=== PATIENT | female | born 1940 | race Caucasian/White ===

== ENCOUNTER 2021-08-27 11:50 | Inpatient (IN) | payer MEDICARE, OTHER ==
[~2021-08-27] VITALS: Ht 175.3 cm; Wt 112.5 kg
[2021-08-27 13:19] LABS: Basophils # (auto) 0.1 10 ^3/uL (0-0.2); Basophils % (auto) 0.8 % (0.0-2.0); Eosinophils # (auto) 0.2 10 ^3/uL (0-0.8); Eosinophils % (auto) 2.5 % (0.0-7.0); Hematocrit 40.9 % (36.0-46.0); Hemoglobin 13.2 g/dL (12.2-16.2); Lymphocytes % (auto) 12.4 % (10.0-50.0); Mean Corpuscular Hemoglobin 28.5 pg (28.0-32.0); Mean Corpuscular Hgb Conc. 32.1 g/dL (32.0-36.0); Mean Corpuscular Volume 88.8 fL (80.0-100.0); Monocytes # (auto) 0.5 10 ^3/uL (0-1.3); Monocytes % (auto) 5.9 % (0.0-12.0); Neutrophils # (auto) 6.3 10 ^3/uL (1.6-8.6); Neutrophils % (auto) 78.4 % (37.0-80.0); Red Blood Cells 4.61 10^6/uL (4.0-5.20); Red Cell Distribution Width 14.2 % (11.8-14.3)
[2021-08-27 13:40] LABS: Albumin 3.6 g/dL (3.4-5.0); Calcium 9.3 mg/dL (8.5-10.1); Potassium 4.1 mmol/L (3.5-5.1)
[2021-08-27 13:43] LABS: BUN/Creatinine Ratio 23.4; Bilirubin, Total 0.4 mg/dL (0.2-1.0)
[2021-08-27 14:13] LABS: INR 1.09 (0.9-1.15); Partial Thromboplastin Time 25.9 sec (23.6-33.0)
[2021-08-27] MEDS ORDERED: MORPHINE SULFATE INJECTION 2 MG/ML SYRG IV PRN ×4 (14:45→18:45)
[2021-08-27] MEDS ORDERED: NITROGLYCERIN 0.4 MG SL TAB SL PRN ×2 (14:45→18:45)
[2021-08-27] MEDS ORDERED: POTA10TA32 PO (15:43)
[2021-08-27] MEDS ORDERED: DULO1CAP6 PO (15:43)
[2021-08-27] MEDS ORDERED: METO25TA93 PO (15:43)
[2021-08-27] MEDS ORDERED: PRAV20TA3 PO (15:43)
[2021-08-27] MEDS ORDERED: FENO145T27 PO (15:43)
[2021-08-27] MEDS ORDERED: RIVA10TA2 PO (15:43)
[2021-08-27] MEDS ORDERED: AMLO-489 PO (15:43)
[2021-08-27] MEDS ORDERED: FUR20T PO (15:43)
[2021-08-27] MEDS ORDERED: MULT-976 PO (15:47)
[2021-08-27] MEDS ORDERED: TETR0.0542 OP (15:47)
[2021-08-27] MEDS ORDERED: CYAN100T7 PO (15:47)
[2021-08-27] MEDS ORDERED: ZINC220C8 PO (15:47)
[2021-08-27] MEDS ORDERED: CARB6.5S44 OT (15:47)
[2021-08-27] MEDS ORDERED: DIPH1TAB30 PO (15:47)
[2021-08-27] MEDS ORDERED: VITA100T3 PO (15:47)
[2021-08-27] MEDS ORDERED: ASCO500C5 PO (15:47)
[2021-08-27] MEDS: ONDANSETRON HCL 4 MG/2 ML VIAL IV PRN (17:17)
[2021-08-27 18:02] VITALS: BP 161/76
[2021-08-27] MEDS ORDERED: NIFEdipine ER 30 MG TAB PO ONE (18:45)
[2021-08-27] MEDS ORDERED: AZITHROMYCIN 500MG/ 250ML 250 ML IV ONE (18:45)
[2021-08-27] MEDS ORDERED: METOCLOPRAMIDE HCL 5MG/ml INJ 2ml VIAL IV PRN (18:45)
[2021-08-27] MEDS ORDERED: ALBUTEROL SULF 2.5 MG/0.5ML(0.5%) NEB SOLN NEB PRN (18:45)
[2021-08-27] MEDS ORDERED: LORazepam 0.5 MG TAB PO PRN (18:45)
[2021-08-27] MEDS ORDERED: ALUM & MAG HYDROX-SIMETH LIQ(MAALOX) 30 ML PO PRN (18:45)
[2021-08-27] MEDS ORDERED: ACETAMINOPHEN 325 MG TAB PO PRN (18:45)
[2021-08-27] MEDS: SODIUM CHLORIDE 0.9% 1,000 ML IV SCH (19:52)
[2021-08-27 22:00] VITALS: BP 148/62
[2021-08-27] MEDS ORDERED: IPRATROPIUM BROM 0.5 MG/2.5ML INH SOL NEB SCH (22:00)
[2021-08-27] MEDS ORDERED: POTASSIUM CHL 20 Meq TABLET PO SCH (22:00)
[2021-08-27] MEDS ORDERED: IPRATROPIUM BROM 0.5 MG/2.5ML INH SOL NEB PRN (22:00)
[2021-08-27] MEDS ORDERED: BUDESONIDE (INHALATION) 0.5 MG/2 ML NEB NEB SCH (22:00)
[2021-08-27] MEDS: PRAVASTATIN SODIUM 20 MG TAB PO SCH (22:27)
[2021-08-27] MEDS: METOPROLOL TARTRATE 25 MG TAB PO SCH (22:31)
[2021-08-28 05:00] VITALS: BP 111/61
[2021-08-28 05:58] LABS: Basophils # (auto) 0.1 10 ^3/uL (0-0.2); Basophils % (auto) 1.2 % (0.0-2.0); Eosinophils # (auto) 0.1 10 ^3/uL (0-0.8); Eosinophils % (auto) 1.8 % (0.0-7.0); Hematocrit 34.5 % (36.0-46.0); Hemoglobin 11.6 g/dL (12.2-16.2); Lymphocytes # (auto) 1.4 10 ^3/uL (0.4-5.4); Lymphocytes % (auto) 25.4 % (10.0-50.0); Mean Corpuscular Hemoglobin 29.8 pg (28.0-32.0); Mean Corpuscular Hgb Conc. 33.8 g/dL (32.0-36.0); Mean Corpuscular Volume 88.3 fL (80.0-100.0); Monocytes # (auto) 0.5 10 ^3/uL (0-1.3); Monocytes % (auto) 9.5 % (0.0-12.0); Neutrophils # (auto) 3.5 10 ^3/uL (1.6-8.6); Neutrophils % (auto) 62.1 % (37.0-80.0); Nucleated Red Blood Cells % 0.1 %; Red Blood Cells 3.91 10^6/uL (4.0-5.20); Red Cell Distribution Width 14.4 % (11.8-14.3); White Blood Cell 5.6 10^3/uL (4.4-10.8)
[2021-08-28 06:13] LABS: INR 1.09 (0.9-1.15)
[2021-08-28 06:27] LABS: Potassium 3.9 mmol/L (3.5-5.1)
[2021-08-28 06:38] LABS: Albumin 2.9 g/dL (3.4-5.0); BUN/Creatinine Ratio 26.6; Bilirubin, Total 0.7 mg/dL (0.2-1.0); Calcium 8.5 mg/dL (8.5-10.1); Magnesium 2.4 mg/dL (1.6-2.6); Total Protein 6.1 g/dL (6.4-8.2); Uric Acid 6.3 mg/dL (2.6-6.0)
[2021-08-28 09:00] VITALS: BP 127/63
[2021-08-28] MEDS: AZITHROMYCIN 500MG/ 250ML 250 ML IV SCH (09:45)
[2021-08-28] MEDS: ENOXAPARIN SOD 120 MG/0.8 ML SYRINGE SC SCH ×2 (09:47→22:00)
[2021-08-28] MEDS: METOPROLOL TARTRATE 25 MG TAB PO SCH ×2 (09:47→22:05)
[2021-08-28] MEDS: MULTIPLE VITAMINS W/ MINERALS TAB PO SCH (09:47)
[2021-08-28] MEDS ORDERED: MULTIPLE VITAMINS W/ MINERALS TAB PO SCH (10:00)
[2021-08-28] MEDS ORDERED: NIFEdipine ER 30 MG TAB PO SCH (10:00)
[2021-08-28] MEDS: SODIUM CHLORIDE 0.9% 1,000 ML IV SCH ×2 (11:49→18:03)
[2021-08-28] MEDS ORDERED: IOHEXOL 350 MG/ML 100ML IJ ONE (12:14)
[2021-08-28 13:00] VITALS: BP 127/55
[2021-08-28] MEDS: ONDANSETRON HCL 4 MG/2 ML VIAL IV PRN (16:03)
[2021-08-28 17:00] VITALS: BP 131/60
[2021-08-28] MEDS ORDERED: RIVAROXABAN 10 MG TAB PO SCH (18:00)
[2021-08-28] MEDS: HYDROcodone-ACET 5/325MG TAB PO PRN (18:06)
[2021-08-28] MEDS ORDERED: FUROSEMIDE 40 MG/4 ML VIAL IV SCH (19:55)
[2021-08-28 21:57] VITALS: BP 111/52
[2021-08-28] MEDS: PRAVASTATIN SODIUM 20 MG TAB PO SCH (22:05)
[2021-08-29] MEDS: HYDROcodone-ACET 5/325MG TAB PO PRN ×2 (00:35→18:05)
[2021-08-29 05:00] VITALS: BP 128/57
[2021-08-29 05:54] LABS: Basophils # (auto) 0 10 ^3/uL (0-0.2); Basophils % (auto) 0.8 % (0.0-2.0); Eosinophils # (auto) 0.1 10 ^3/uL (0-0.8); Eosinophils % (auto) 1.2 % (0.0-7.0); Hematocrit 31.9 % (36.0-46.0); Hemoglobin 10.6 g/dL (12.2-16.2); Lymphocytes # (auto) 1.3 10 ^3/uL (0.4-5.4); Lymphocytes % (auto) 22.7 % (10.0-50.0); Mean Corpuscular Hemoglobin 29.6 pg (28.0-32.0); Mean Corpuscular Hgb Conc. 33.3 g/dL (32.0-36.0); Mean Corpuscular Volume 88.8 fL (80.0-100.0); Monocytes # (auto) 0.7 10 ^3/uL (0-1.3); Monocytes % (auto) 12.2 % (0.0-12.0); Neutrophils # (auto) 3.6 10 ^3/uL (1.6-8.6); Neutrophils % (auto) 63.1 % (37.0-80.0); Red Blood Cells 3.59 10^6/uL (4.0-5.20); Red Cell Distribution Width 14.2 % (11.8-14.3); White Blood Cell 5.6 10^3/uL (4.4-10.8)
[2021-08-29] MEDS: SODIUM CHLORIDE 0.9% 1,000 ML IV SCH (06:30)
[2021-08-29 06:39] LABS: Potassium 3.9 mmol/L (3.5-5.1)
[2021-08-29 06:47] LABS: Albumin 2.6 g/dL (3.4-5.0); BUN/Creatinine Ratio 31.4; Bilirubin, Total 0.6 mg/dL (0.2-1.0); Calcium 8.1 mg/dL (8.5-10.1); Total Protein 5.2 g/dL (6.4-8.2)
[2021-08-29 09:00] VITALS: BP 132/57
[2021-08-29] MEDS: ENOXAPARIN SOD 120 MG/0.8 ML SYRINGE SC SCH ×2 (09:42→21:25)
[2021-08-29] MEDS: AZITHROMYCIN 500MG/ 250ML 250 ML IV SCH (09:42)
[2021-08-29] MEDS: MULTIPLE VITAMINS W/ MINERALS TAB PO SCH (09:42)
[2021-08-29] MEDS: METOPROLOL TARTRATE 25 MG TAB PO SCH ×2 (09:44→21:24)
[2021-08-29 13:00] VITALS: BP 102/61
[2021-08-29 16:45] VITALS: BP 141/67
[2021-08-29] MEDS: RIVAROXABAN 20 MG TAB PO SCH (18:05)
[2021-08-29] MEDS: PRAVASTATIN SODIUM 20 MG TAB PO SCH (21:25)
[2021-08-29 22:00] VITALS: BP 120/57
[2021-08-30] MEDS: HYDROcodone-ACET 5/325MG TAB PO PRN ×4 (00:45→21:34)
[2021-08-30 05:00] VITALS: BP 133/68
[2021-08-30 06:01] LABS: Basophils # (auto) 0.1 10 ^3/uL (0-0.2); Basophils % (auto) 1.5 % (0.0-2.0); Eosinophils # (auto) 0.1 10 ^3/uL (0-0.8); Eosinophils % (auto) 1.9 % (0.0-7.0); Hematocrit 32.1 % (36.0-46.0); Hemoglobin 10.6 g/dL (12.2-16.2); Lymphocytes # (auto) 1.1 10 ^3/uL (0.4-5.4); Lymphocytes % (auto) 20.7 % (10.0-50.0); Mean Corpuscular Hgb Conc. 32.9 g/dL (32.0-36.0); Mean Corpuscular Volume 88.1 fL (80.0-100.0); Monocytes # (auto) 0.5 10 ^3/uL (0-1.3); Monocytes % (auto) 9.8 % (0.0-12.0); Neutrophils # (auto) 3.4 10 ^3/uL (1.6-8.6); Neutrophils % (auto) 66.1 % (37.0-80.0); Red Blood Cells 3.64 10^6/uL (4.0-5.20); Red Cell Distribution Width 14.1 % (11.8-14.3); White Blood Cell 5.1 10^3/uL (4.4-10.8)
[2021-08-30 06:24] LABS: Potassium 3.9 mmol/L (3.5-5.1)
[2021-08-30 06:32] LABS: Albumin 2.6 g/dL (3.4-5.0); BUN/Creatinine Ratio 27.9; Bilirubin, Total 0.6 mg/dL (0.2-1.0); Calcium 8.1 mg/dL (8.5-10.1); Total Protein 5.5 g/dL (6.4-8.2)
[2021-08-30 09:00] VITALS: BP 133/61
[2021-08-30] MEDS: AZITHROMYCIN 500MG/ 250ML 250 ML IV SCH (10:20)
[2021-08-30] MEDS: METOPROLOL TARTRATE 25 MG TAB PO SCH ×2 (10:21→21:14)
[2021-08-30] MEDS: MULTIPLE VITAMINS W/ MINERALS TAB PO SCH (10:22)
[2021-08-30] MEDS: ENOXAPARIN SOD 120 MG/0.8 ML SYRINGE SC SCH ×2 (10:22→21:20)
[2021-08-30 13:00] VITALS: BP 109/57
[2021-08-30 17:00] VITALS: BP 128/57
[2021-08-30] MEDS: RIVAROXABAN 20 MG TAB PO SCH (17:51)
[2021-08-30] MEDS: PRAVASTATIN SODIUM 20 MG TAB PO SCH (21:19)
[2021-08-30 22:00] VITALS: BP 99/86
[2021-08-31] MEDS: HYDROcodone-ACET 5/325MG TAB PO PRN ×2 (04:21→22:19)
[2021-08-31 05:25] VITALS: BP 161/78
[2021-08-31 07:28] LABS: Basophils # (auto) 0.1 10 ^3/uL (0-0.2); Basophils % (auto) 1.1 % (0.0-2.0); Eosinophils # (auto) 0.1 10 ^3/uL (0-0.8); Eosinophils % (auto) 2.8 % (0.0-7.0); Hemoglobin 10.8 g/dL (12.2-16.2); Lymphocytes # (auto) 0.9 10 ^3/uL (0.4-5.4); Mean Corpuscular Hemoglobin 28.8 pg (28.0-32.0); Mean Corpuscular Hgb Conc. 32.8 g/dL (32.0-36.0); Mean Corpuscular Volume 87.9 fL (80.0-100.0); Monocytes # (auto) 0.5 10 ^3/uL (0-1.3); Monocytes % (auto) 10.7 % (0.0-12.0); Neutrophils % (auto) 66.4 % (37.0-80.0); Nucleated Red Blood Cells % 0.1 %; Red Blood Cells 3.75 10^6/uL (4.0-5.20); White Blood Cell 4.5 10^3/uL (4.4-10.8)
[2021-08-31 07:45] LABS: Albumin 2.4 g/dL (3.4-5.0); Calcium 8.3 mg/dL (8.5-10.1)
[2021-08-31 07:49] LABS: BUN/Creatinine Ratio 31.1; Bilirubin, Total 0.6 mg/dL (0.2-1.0); Total Protein 5.5 g/dL (6.4-8.2)
[2021-08-31 09:00] VITALS: BP 136/68
[2021-08-31] MEDS: MULTIPLE VITAMINS W/ MINERALS TAB PO SCH (10:00)
[2021-08-31] MEDS: ENOXAPARIN SOD 120 MG/0.8 ML SYRINGE SC SCH ×2 (10:00→22:16)
[2021-08-31] MEDS: METOPROLOL TARTRATE 25 MG TAB PO SCH ×2 (10:03→22:16)
[2021-08-31] MEDS: DOCUSATE SOD 100 MG CAP PO PRN (11:12)
[2021-08-31 12:38] VITALS: BP 136/68
[2021-08-31 12:53] VITALS: BP 147/73
[2021-08-31 17:00] VITALS: BP 148/70
[2021-08-31] MEDS: RIVAROXABAN 20 MG TAB PO SCH (18:09)
[2021-08-31 22:00] VITALS: BP 129/53
[2021-08-31] MEDS: PRAVASTATIN SODIUM 20 MG TAB PO SCH (22:16)
[2021-09-01 05:00] VITALS: BP 146/61
[2021-09-01 05:42] LABS: Basophils # (auto) 0.1 10 ^3/uL (0-0.2); Basophils % (auto) 1.3 % (0.0-2.0); Eosinophils # (auto) 0.2 10 ^3/uL (0-0.8); Eosinophils % (auto) 3.9 % (0.0-7.0); Hematocrit 31.6 % (36.0-46.0); Hemoglobin 10.4 g/dL (12.2-16.2); Lymphocytes # (auto) 0.9 10 ^3/uL (0.4-5.4); Lymphocytes % (auto) 19.7 % (10.0-50.0); Mean Corpuscular Hemoglobin 28.7 pg (28.0-32.0); Mean Corpuscular Hgb Conc. 32.9 g/dL (32.0-36.0); Mean Corpuscular Volume 87.2 fL (80.0-100.0); Monocytes # (auto) 0.5 10 ^3/uL (0-1.3); Monocytes % (auto) 10.6 % (0.0-12.0); Neutrophils # (auto) 3.1 10 ^3/uL (1.6-8.6); Neutrophils % (auto) 64.5 % (37.0-80.0); Nucleated Red Blood Cells % 0.1 %; Red Blood Cells 3.63 10^6/uL (4.0-5.20); Red Cell Distribution Width 14.2 % (11.8-14.3); White Blood Cell 4.8 10^3/uL (4.4-10.8)
[2021-09-01 05:54] LABS: Potassium 3.9 mmol/L (3.5-5.1)
[2021-09-01 06:02] LABS: Albumin 2.3 g/dL (3.4-5.0); BUN/Creatinine Ratio 29.4; Bilirubin, Total 0.7 mg/dL (0.2-1.0); Calcium 8.4 mg/dL (8.5-10.1); Total Protein 5.5 g/dL (6.4-8.2)
[2021-09-01 09:00] VITALS: BP 125/59
[2021-09-01] MEDS: MULTIPLE VITAMINS W/ MINERALS TAB PO SCH (10:04)
[2021-09-01] MEDS: METOPROLOL TARTRATE 25 MG TAB PO SCH (10:04)
[2021-09-01] MEDS: ENOXAPARIN SOD 120 MG/0.8 ML SYRINGE SC SCH (10:04)
[2021-09-01 13:00] VITALS: BP 133/58
[2021-09-01] MEDS: DOCUSATE SOD 100 MG CAP PO PRN (14:37)
[2021-09-01] MEDS: HYDROcodone-ACET 5/325MG TAB PO PRN (14:38)
[2021-09-01 17:00] VITALS: BP 101/56
== END 2021-09-01 16:55 | disposition home or self-care (01) | DRG 560 ==
LOC: ER 11:50 → EDBD 11:50 → TELE 14:35 → TELE-CENTR 17:58
PROVIDERS: ADMIT Hospitalist; ATTEND Family Medicine
DX: M97.02XA Periprosthetic fracture around internal prosthetic left hip joint, initial encounter (principal); I82.509 Chronic embolism and thrombosis of unspecified deep veins of unspecified lower extremity; I50.9 Heart failure, unspecified; E66.01 Morbid (severe) obesity due to excess calories; E78.5 Hyperlipidemia, unspecified; F17.210 Nicotine dependence, cigarettes, uncomplicated; I11.0 Hypertensive heart disease with heart failure; M19.90 Unspecified osteoarthritis, unspecified site; J44.9 Chronic obstructive pulmonary disease, unspecified; Z96.642 Presence of left artificial hip joint; Z20.822 Contact with and (suspected) exposure to COVID-19; E78.00 Pure hypercholesterolemia, unspecified; W01.0XXA Fall on same level from slipping, tripping and stumbling without subsequent striking against object, initial encounter; M79.7 Fibromyalgia; Z68.36 Body mass index [BMI] 36.0-36.9, adult; Z79.01 Long term (current) use of anticoagulants; Z88.0 Allergy status to penicillin; Z90.49 Acquired absence of other specified parts of digestive tract; Y92.513 Shop (commercial) as the place of occurrence of the external cause; Z91.81 History of falling; Y93.89 Activity, other specified; Y99.8 Other external cause status; Z79.899 Other long term (current) drug therapy
CPT/HCPCS: 36415; 71045; 71275; 73502; 73700; 80053; 82306; 83036; 83735; 83880; 84100; 84443; 84484; 84550; 85025; 85610; 85730; 87040; 87426; 93005; 93306; 93970; 96374; 97116; 97163; 97530; G0378; J2405

== ENCOUNTER 2025-08-13 20:07 | Emergency (ER) | payer BC, MEDICARE ==
[~2025-08-13] VITALS: Ht 172.7 cm; Wt 108.4 kg
[~2025-08-13 20:07] MED LIST: AMLO1TAB22 PO; ASCO500C5 PO; CARB6.5S44 OT; CYAN100T7 PO; DIPH1TAB30 PO; DULO1CAP6 PO; FENO145T27 PO; FURO20TA4 PO; METO25TA93 PO; MULT-1054 PO; POTA-228 PO; PRAV20TA3 PO; RIVA10TA2 PO; TETR0.0542 OP; VITA100T3 PO; ZINC220C8 PO
[2025-08-13 20:13] VITALS: BP 169/75; PULSE 80; RESP 16; TEMP 99.9; O2SAT 96
--- NOTE | 2025-08-13 21:25 | DVH ---
CLINICAL INDICATION: left hip pain TECHNIQUE: XYXY L HIP COMPLETE XRAY Comparison: None FINDINGS/IMPRESSION: : Left hip arthroplasty without complication. No fracture or malalignment.
--- NOTE | 2025-08-13 21:25 | DVH ---
CLINICAL INDICATION: left knee pain TECHNIQUE: XYXY L KNEE 3V XRAY Comparison: XY L HIP COMPLETE XRAY on DOS: 08/13/25 FINDINGS/IMPRESSION: : There is no evidence of acute fracture or dislocation. Severe tricompartmental degenerative changes with joint space narrowing and prominent osteophytes. Soft tissues are unremarkable.
--- NOTE | 2025-08-13 22:27 | ED.PDOC ---
Musculoskeletal HPI Comments 85-year-old female presents to ER with complaints of fall injury x1 day. Patient presents VIA EMS, reporting that she tripped and fell and landed on her left knee onto a dog bed at home at 7:00 p.m. prior to arrival to ER and has since been experiencing 10/10 left knee pain and 2/10 left hip pain. Denies head injury/LOC and denies any other reported injuries. Patient presents to ER in wheelchair in mild distress, and reports he has not been able to bear weight on left leg post fall. Denies numbness/tingling and endorses no further symptoms/complaints Chief Complaint: Lower Extremity Time Seen by MD: 20:56 Primary Care Provider: UNK Reviewed Notes: Nurses Notes, Medications, Allergies Allergies: Coded Allergies: Penicillins (Verified Allergy, Unknown, 08/27/21) Home Meds Reported Medications Tetrahydrozoline Hcl (Eye Drops) Unknown Strength Jocelyn, OP PRN 1 DROP EACHEYE PRN 08/27/21 Carbamide Peroxide (Debrox) Unknown Strength Jocelyn, OT HS 1 DROP EACHEAR HS 08/27/21 Multiple Vitamins W/ Minerals (Womens Multivitamin) 1 Tab Tab, 1 TAB PO DAILY 08/27/21 Cyanocobalamin (Vitamin B12) Unknown Strength Tab, PO DAILY 08/27/21 Zinc Sulfate (Zinc Sulfate) Unknown Strength Cap, PO DAILY 08/27/21 Ascorbic Acid (VITAMIN C) Unknown Strength Chw, PO DAILY 08/27/21 Alpha Tocopheryl Acid Succinat (VITAMIN E) Unknown Strength Tab, PO DAILY 08/27/21 Diphenhydramine-Acetaminophen (Tylenol Pm Extra Strength 500-25 mg) 1 Tab Tab, 2 TAB PO HS 08/27/21 Duloxetine HCl (Duloxetine HCl) 60 Mg Cap, 1 CAP PO DAILY 08/27/21 Pravastatin Sodium (PRAVACHOL TABLET) 20 Mg Tb, 40 MG PO HS 08/27/21 Metoprolol Succinate (Metoprolol Succinate Er) 25 Mg Tab, 0.5 TAB PO DAILY 08/27/21 Potassium Chloride (Potassium Chloride ER) 10 Meq Tab, 1 TAB PO DAILY 08/27/21 Fenofibrate (FENOFIBRATE) 145 Mg Tab, 1 TAB PO DAILY 08/27/21 Furosemide (Furosemide) 20 Mg Tab, 1 TAB PO QAM 08/27/21 Amlodipine Besylate (Amlodipine Besylate) 5 Mg Tab, 1 TAB PO DAILY 08/27/21 Rivaroxaban (Xarelto Tablet) 10 Mg Tb, 1 TAB PO QPM 08/27/21 Information Source: Patient Mode of Arrival: EMS Past Medical History PAST MEDICAL HISTORY: Cancer, High Lipids, HTN Surgical History: Appendectomy, Tonsillectomy Surgical History (Other): Left hip replacement Family History Family History: Unknown Social History Smoker: Cigarettes, Less Than 1 Pack/Day Alcohol: Denies ETOH Use Drugs: Denies Drug Use Lives In: Home Constitutional: denies: chills, diaphoresis, fatigue, fever, malaise, sweats, weakness, others EENTM: denies: blurred vision, double vision, ear bleeding, ear discharge, ear drainage, ear pain, ear ringing, eye pain, eye redness, hearing loss, mouth pain, mouth swelling, nasal discharge, nose bleeding, nose congestion, nose pain, photophobia, tearing, throat pain, throat swelling, voice changes, others Respiratory: denies: cough, hemoptysis, orthopnea, SOB at rest, shortness of breath, SOB with excertion, stridor, wheezing, others Cardiovascular: denies: chest pain, dizzy spells, diaphoresis, Dyspnea on exertion, edema, irregular heart beat, left arm pain, lightheadedness, palpitations, PND, syncope, others Gastrointestinal: denies: abdomen distended, abdominal pain, blood streaked bowels, constipated, diarrhea, dysphagia, difficulty swallowing, hematemesis, melena, nausea, poor appetite, poor fluid intake, rectal bleeding, rectal pain, vomiting, others Genitourinary: denies: abnormal vagina bleeding, burning, dyspareunia, dysuria, flank pain, frequency, hematuria, incontinence, pain, , vagina discharge, urgency, others Neurological: denies: dizziness, fainting, headache, left sided numbness, left sided weakness, numbness, paresthesia, pre-existing deficit, right sided numbness, right sided weakness, seizure, speech problems, tingling, tremors, weakness, others Musculoskeletal: reports: others (As stated in HPI) Integumetry: denies: bruises, change in color, change in hair/nails, dryness, laceration, lesions, lumps, rash, wounds, others Allergic/Immunocompromised: denies: Difficulty Healing, Frequent Infections, Hives, Itching, others Hematologic/Lymphatic: denies: anemia, blood clots, easy bleeding, easy bruising, swollen glands, others Endocrine: denies: excessive hunger, excessive sweating, excessive thirst, excessive urination, flushing, intolerance to cold, intolerance to heat, unexplained weight gain, unexplained weight loss, others Psychiatric: denies: anxiety, bipolar disorder, depression, hopeless, panic disorder, schizophrenia, sleepless, suicidal, others Physical Exam General Appearance: No Apparent Distress, Obese HEENT: PERRL/EOMI Neck: Full Range of Motion, Non-Tender, Normal Respiratory: Chest Non-Tender, Lungs Clear, No Accessory Muscle Use, No Respi ratory Distress, Normal Breath Sounds Cardiovascular: No Murmur, No Gallop, Regular Rate/Rhythm Breast Exam: Deferred Gastrointestinal: Non Tender, No Pulsatile Mass, Soft Genitalia: Deferred Pelvic: Deferred Rectal: Deferred Extremities: No calf tenderness, Normal capillary refill, Normal range of motion Musculoskeletal : Extremity Location: Hip (TTP to left hip noted. No internal rotation/shortening to bilateral lower extremities noted. Scar noted from previous left hip replacement surgery. No further skin changes noted. Pulses intact), Knee (TTP to left anterior knee noted. No deformity/skin changes noted. Pulses intact. Gait slow due to pain localized to left knee and left hip) Neurologic: Alert, No Motor Deficits, Normal Affect, Normal Mood, No Sensory Deficits Cerebellar Function: Normal Reflexes: Normal Skin: Dry, Normal Color, Warm Peripheral Pulses: 2+ carotid (R), 2+ carotid (L), 2+ femoral (R), 2+ femoral (L), 2+ dorsalis pedis (R), 2+ dorsalis pedis (L), 2+ Radial (R), 2+ Radial (L), 2+ Brachial (R), 2+ Brachial (L) Lymphatic: No Adenopathy Was a procedure done? Was a procedure done?: No Sedation Sedation?: No Differential Diagnosis EXT Differential Diagnosis: Fracture, Dislocation, Neurovascular injury X-Ray, Labs, Meds, VS Vital Signs Date Time Temp Pulse Resp B/P (MAP) Pulse Ox O2 Delivery O2 Flow Rate FiO2 08/13/25 20:13 99.9 80 16 169/75 96 99.9 PATIENT: PAT ABBASI DACCT: [id number]: [id number] : 1940 LOC: ER ROOM / BED: / AGE / SEX: 85 / F ADM STATUS: REG ER SERVICE 39 ORDERING PHYSICIAN: DONTE VICENTE PROCEDURE(s): LKNE3 - L KNEE 3V XRAY REASON: left knee pain ORDER NUMBER(s): [id number], ACCESSION NUMBER(s): [id number] CLINICAL INDICATION: left knee pain TECHNIQUE: XYXY L KNEE 3V XRAY Comparison: XY L HIP COMPLETE XRAY on DOS: 08/13/25 FINDINGS/IMPRESSION: : There is no evidence of acute fracture or dislocation. Severe tricompartmental degenerative changes with joint space narrowing and prominent osteophytes. Soft tissues are unremarkable. ATED BY: KB GARCIA MD DICTATED DATE/TIME: 08/13/252122 SIGNED BY: KB GARCIA MD SIGNED DATE/TIME: 08/13/252122 CC: PATIENT: PAT ABBASI ACCT: [id number] UNIT: [id number] : 1940 LOC: ER ROOM / BED: / AGE / SEX: 85 / F ADM STATUS: REG ER SERVICE 39 ORDERING PHYSICIAN: DONTE VICENTE PROCEDURE(s): LHIP - L HIP COMPLETE XRAY REASON: left hip pain ORDER NUMBER(s): [id number], ACCESSION NUMBER(s): [id number] CLINICAL INDICATION: left hip pain TECHNIQUE: XYXY L HIP COMPLETE XRAY Comparison: None FINDINGS/IMPRESSION: : Left hip arthroplasty without complication. No fracture or malalignment. ATED BY: KB GARCIA MD DICTATED DATE/TIME: 08/13/252121 SIGNED BY: KB GARCIA MD SIGNED DATE/TIME: 08/13/252121 CC: Left knee x-ray reviewed Left hip x-ray reviewed Tylenol 650 mg p.o. ordered Patient neurovascularly intact and reported improvement in symptoms prior to discharge Advised on elevation and alternate ice on/off as needed for pain Advised to follow up with PCP in 1-2 days Patient verbalized understanding and agreeable with current plan of care Advised to return to ER immediately if symptoms worsen Images Reviewed?: Images reviewed and evaluated by me Time of 1ST Reevaluation: 22:04 Reevaluation 1ST: N/A Patient Education/Counseling: Diagnosis, Treatment, Prognosis, Need For Follow Up Family Education/Counseling: No Family Present Departure 1 Departure Time of Disposition: 22:33 Impression: Primary Impression: Contusion of left knee Qualified Codes: S80.02XA - Contusion of left knee, initial encounter Additional Impression: Contusion of left hip Qualified Codes: S70.02XA - Contusion of left hip, initial encounter Disposition: HOME / SELF CARE / HOMELESS Condition: Stable e-Prescriptions Acetaminophen (Acetaminophen) 500 Mg Tab 500 MG PO Q4HPRN, #30 TAB 0 Refills Prov: DONTE VICENTE 08/13/25 Discharged With: Other (Daughter) Critical Care Note Critical Care Time?: No Stability Stability form required: No Heart Score Heart Score: Heart Score Response (Comments) Value History N/A 0 EKG N/A 0 Age N/A 0 Risk Factors N/A 0 Troponin N/A 0 Total 0 DONTE VICENTE Aug 13, 2025 22:27
[2025-08-13] MEDS ORDERED: ACET500T58 PO (22:35)
[2025-08-13] MEDS: ACETAMINOPHEN 325 MG TAB PO ONE (23:15)
== END 2025-08-13 23:31 | disposition home or self-care (01) ==
LOC: ER 20:07 → EDBD 20:07 → ER 23:31
DX: S80.02XA Contusion of left knee, initial encounter (principal); S70.02XA Contusion of left hip, initial encounter; F17.210 Nicotine dependence, cigarettes, uncomplicated; Z79.899 Other long term (current) drug therapy; Z88.0 Allergy status to penicillin; Z90.89 Acquired absence of other organs; W01.0XXA Fall on same level from slipping, tripping and stumbling without subsequent striking against object, initial encounter; Y93.89 Activity, other specified; Y92.009 Unspecified place in unspecified non-institutional (private) residence as the place of occurrence of the external cause; Y99.8 Other external cause status
CPT/HCPCS: 73502; 73562